=== PATIENT | male | born 1970 | race Asian ===

== ENCOUNTER 2017-02-07 12:28 | Emergency (ER) | payer MEDICAID ==
[~2017-02-07] VITALS: Ht 172.7 cm; Wt 113.4 kg
[~2017-02-07 12:28] MED LIST: ASPI81TA27 PO; CARV25TA PO
[2017-02-07 12:55] VITALS: BP 117/84
== END 2017-02-07 13:14 | disposition left against medical advice (07) ==
LOC: ER 12:28
DX: I10 Essential (primary) hypertension (principal); Z76.0 Encounter for issue of repeat prescription; Z53.21 Procedure and treatment not carried out due to patient leaving prior to being seen by health care provider